=== PATIENT | male | born 1995 | race Caucasian/White ===

== ENCOUNTER 2021-06-01 14:27 | Emergency (ER) | payer OTHER ==
[~2021-06-01] VITALS: Ht 175.3 cm; Wt 93.2 kg
--- NOTE | 2021-06-01 18:10 | REP ---
INDICATION: equipment fell on middle finger. COMPARISON: None. TECHNIQUE: Four views of the right long finger. FINDINGS: Four views of the right long finger demonstrate a crush-type chip fracture of the distal tuft of the long finger. There is associated soft tissue swelling. No significant displacement. No opaque foreign body noted. IMPRESSION: Crush-type fracture distal tuft of the right long finger with associated soft tissue swelling. <Electronically signed by Austyn Dawn > 06/01/21 [id number]
[2021-06-01 20:59] VITALS: BP 125/63
== END 2021-06-01 21:07 | disposition home or self-care (01) ==
LOC: M ED 14:27
DX: S62.632A Displaced fracture of distal phalanx of right middle finger, initial encounter for closed fracture (principal); W20.8XXA Other cause of strike by thrown, projected or falling object, initial encounter; Y92.59 Other trade areas as the place of occurrence of the external cause; Y93.89 Activity, other specified; Y99.0 Civilian activity done for income or pay